=== PATIENT | male | born 1995 | race African-American/Black ===

== ENCOUNTER 2020-08-25 07:57 | Emergency (ER) | payer SELFPAY ==
--- NOTE | ~2020-08-25 | XR_ITS ---
EXAMINATION: XR chest 2V DATE: 08/25/2020 08:37 INDICATION: Palpitations TECHNIQUE: PA and lateral views of the chest were obtained. COMPARISON: None FINDINGS: The lungs are clear with no focal airspace opacities, pulmonary edema, pleural effusion or pneumothor ax. The cardiomediastinal silhouette is normal. Visualized bones and soft tissues are unremarkable. IMPRESSION: 1. Normal chest radiograph. Reviewed, dictated and finalized at location A. IMPRESSION: 1. Normal chest radiograph.
--- NOTE | 2020-08-25 08:21 | ED.GENADULT ---
HPI - General Adult General Chief complaint: Chest Pain Stated complaint: heart palpatations Time Seen by Provider: 08/25/20 08:00 History of Present Illness HPI narrative: Patient is a 24-year-old male who presents ER with heart palpitations. Reports he woke up this morning just felt like his heart was beating irregularly in his chest. He has no chest pain or shortness of breath. No nausea or vomiting or sweats. He reports he might be getting a little bit lightheaded at times. Reports he felt this 1 other time a couple months ago but only lasted a couple seconds. This is been persistent. No history of arrhythmia or medical issues. Denies taking any medications. Related Data Allergies Allergy/AdvReac Type Severity Reaction Status Date / Time No Known Allergies Allergy Verified 08/25/20 11:21 Review of Systems Review of Systems: All systems reviewed & are unremarkable except as noted in HPI and below Constitutional: Constitutional: Denies chills, Denies fever(s) and Denies weakness ENT: Denies nasal congestion and Denies sore throat Cardiovascular: Cardiovascular: Denies chest pain and Denies radiating jaw, neck or arm pain Comments: irregular HR Respiratory: Respiratory: Denies cough and Denies dyspnea Gastrointestinal: Gastrointestinal: Denies abdominal pain, Denies nausea and Denies vomiting Neurologic: Reports dizziness, Denies focal weakness and Denies numbness PMFSH Past Medical History Medical History (Updated 08/25/20 @ 11:21 by Panchito Rosado MD) Healthy adult male Surgical History Surgical History (Updated 08/25/20 @ 08:26 by Panchito Rosado MD) No history of previous surgery Social History Social History (Updated 08/25/20 @ 11:19 by Panchito Rosado MD) Smoking status: Never smoker Alcohol use details: Regular alcohol use Substance use: never Exam Narrative: Exam Narrative: GENERAL: Well-appearing, well-nourished, and in no acute distress. HEAD: Normocephalic, atraumatic. CHEST: Clear to auscultation. No respiratory distress. HEART: Irregular regular rate and rhythm. Normal peripheral pulses. ABDOMEN: Soft, nontender, nondistended. EXTREMITIES: Normal range of motion. No edema. SKIN: Warm, dry, no rash. NEURO: Alert and oriented x3. PSYCH: Normal mood and affect. Course Course Emergency Course: Patient's blood pressures have been running in the 1 teens with relative consistency. Patient will be started on 12.5 mg of metoprolol twice daily at the recommendation of cardiology. He also be started on a full dose aspirin. He will need to follow-up in clinic. Patient verbalized understanding. We will give first dose of metoprolol prior to discharge. Vital Signs Vital signs: Vital Signs Temperature 98.2 F 08/25/20 08:25 Pulse Rate 78 08/25/20 08:25 Respiratory Rate 19 08/25/20 08:25 Blood Pressure 131/79 08/25/20 08:25 Pulse Oximetry 100 08/25/20 08:25 Temperature 98.2 F 08/25/20 08:25 Pulse Rate 83 08/25/20 10:46 Respiratory Rate 18 08/25/20 10:46 Blood Pressure 109/81 08/25/20 11:00 Pulse Oximetry 100 08/25/20 10:46 Medical Decision Making Vital Signs Vital Signs: Vital Signs Temperature 98.2 F 08/25/20 08:25 Pulse Rate 78 08/25/20 08:25 Respiratory Rate 19 08/25/20 08:25 Blood Pressure 131/79 08/25/20 08:25 Pulse Oximetry 100 08/25/20 08:25 Temperature 98.2 F 08/25/20 08:25 Pulse Rate 83 08/25/20 10:46 Respiratory Rate 18 08/25/20 10:46 Blood Pressure 109/81 08/25/20 11:00 Pulse Oximetry 100 08/25/20 10:46 Lab Data Result diagrams: 08/25/20 08:22 08/25/20 08:22 Labs: Lab Results 08/25/20 08/25/20 08/25/20 Range/Units 08:22 08:22 08:22 WBC 6.0 (4.5-10.0) K/mm3 RBC 5.70 (4.6-6.20) M/mm3 Hgb 17.1 (14.0-18.0) g/dL Hct 50.6 (42.0-52.0) % MCV 88.8 (80-100) fl MCH 30.0 (26-34) pg MCHC 33.8 (32-36) g/dl
[2020-08-25] MEDS: ASPIRIN 81 MG CHEWABLE TABLET 324 MG PO (08:22)
[2020-08-25 08:25] VITALS: BP 131/79; PULSE 78; PULSE 93; RESP 19; TEMP 36.8; O2SAT 100
[2020-08-25 08:29] LABS: Basophils Absolute Auto 0.1 K/mm3 (0.0-0.1); Basophils Percent Auto 1.2 % (0.2-1.2); Eosinophils Absolute Auto 0.1 K/mm3 (0-0.3); Eosinophils Percent Auto 2.4 % (0-4.4); Hematocrit 50.6 % (42.0-52.0); Hemoglobin 17.1 g/dL (14.0-18.0); Immature Granulocyte Absolute 0.01 K/mm3 (0.00-0.031); Immature Granulocyte Percent A 0.2 % (0-0.5); Lymphocytes Absolute Auto 2.15 K/mm3 (0.9-3.2); Lymphocytes Percent Auto 36.1 % (18.3-44.2); Mean Corpuscular HGB Conc 33.8 g/dl (32-36); Mean Corpuscular Volume 88.8 fl (80-100); Mean Platelet Volume 10.4 fl (7.4-10.4); Monocytes Absolute Auto 0.5 K/mm3 (0.1-0.6); Monocytes Percent Auto 7.6 % (2.6-8.5); Neutrophils Absolute Auto 3.1 K/mm3 (1.3-6.7); Neutrophils Percent Auto 52.5 % (45.5-73.1); Platelet Count Result 267 k/mm3 (150-375); Red Cell Distribution Width 12.5 % (11.5-14.5)
--- NOTE | 2020-08-25 08:31 | ECG_ITS ---
Measurements Intervals [place] Rate: 95 P: [place]: 0 QRS: 15 QRSD: 94 T: -1 QT: 300 QTc: 378 Interpretive Statements ATRIAL FIBRILLATION BASELINE ARTIFACT- I, II, III, AVR, AVL, AVF, V1-V4 ABNORMAL ECG Electronically Signed On 08-25-2020 8:51:38 CDT by Mono Landeros D.O.
[2020-08-25 08:39] LABS: Prothrombin Time 12.8 Seconds (11.1-14.7)
[2020-08-25 08:40] LABS: Partial Thromboplastin Time 29.4 SECONDS (22.3-36.8)
[2020-08-25 08:42] LABS: Anion Gap 9 mmol/L (8-16); Blood Urea Nitrogen 14 mg/dL (9-20); Calcium 10.1 mg/dL (8.4-10.2); Carbon Dioxide 26 mmol/L (22-30); Chloride 106 mmol/L (98-107); Estimated CRCL calculation 119 ml/min; Estimated Glomerular Filt Rate > 60; Glucose 91 mg/dL (75-110); Sodium 141 mmol/L (137-145)
[2020-08-25 09:10] LABS: Troponin I < 0.012 ng/mL (0.000-0.034)
[2020-08-25 10:46] VITALS: BP 98/57; PULSE 83; RESP 18; O2SAT 100
[2020-08-25 11:00] VITALS: BP 109/81
[2020-08-25 11:26] VITALS: PULSE 91
[2020-08-25] MEDS: METOPROLOL TARTRATE 25 MG TABLET 12.5 MG PO (11:26)
--- NOTE | 2020-08-25 11:35 | PC.NURSE ---
Pt received 12.5mg of Metoprolol.
[2020-08-25 11:56] LABS: Troponin I < 0.012 ng/mL (0.000-0.034)
== END 2020-08-25 11:37 | disposition home or self-care (01) ==
PROVIDERS: Emergency Provider Emergency Medicine
DX: I48.91 Unspecified atrial fibrillation (principal)
CPT/HCPCS: 36415; 71046; 80048; 83735; 84443; 84484; 85025; 85610; 85730; 93005; 99284; A9270